=== PATIENT | female | born 1940 | race Caucasian/White ===

== ENCOUNTER 2017-08-25 07:18 | Day surgery (SDC) | payer MEDICARE ==
[~2017-08-25] VITALS: Ht 167.6 cm; Wt 86.2 kg
[~2017-08-25 07:18] MED LIST: ASPI325EC PO; BIOTIN5000 MCG PO; Caltrate-600 W1 EACH PO; FLUOCINONIDE; Fluocinonide15 G1 TOP; HYDCHL12.5 PO; HYDCHL25 PO; MEGARED OMEGA-1 EAC1 PO; TURMERIC500 M2 PO; VITAMIN B122500 MCG PO; VITAMIN D35000 UNI1 PO
== END 2017-08-25 23:00 | disposition home or self-care (01) ==
LOC: ORSCMMR 07:18
PROVIDERS: Internal Medicine Gastroenterology
PROC: 0DB58ZX Excision of Esophagus, Via Natural or Artificial Opening Endoscopic, Diagnostic (ICD-10-PCS; principal; 2017-08-25 08:30)
PROC: 0DB48ZX Excision of Esophagogastric Junction, Via Natural or Artificial Opening Endoscopic, Diagnostic (ICD-10-PCS; principal; 2017-08-25 08:30)
PROC: 0DB68ZX Excision of Stomach, Via Natural or Artificial Opening Endoscopic, Diagnostic (ICD-10-PCS; principal; 2017-08-25 08:30)
DX: K21.9 Gastro-esophageal reflux disease without esophagitis (principal); K31.7 Polyp of stomach and duodenum; K44.9 Diaphragmatic hernia without obstruction or gangrene; Z79.899 Other long term (current) drug therapy
CPT/HCPCS: 88305; 88342; J7120

== ENCOUNTER 2022-06-30 13:05 | Day surgery (SDC) | payer MEDICARE ==
[~2022-06-30] VITALS: Ht 170.2 cm; Wt 83.4 kg
== END 2022-06-30 15:16 | disposition home or self-care (01) ==
LOC: ORSCSDS 13:05
PROVIDERS: Ophthalmology
PROC: 08RJ3JZ Replacement of Right Lens with Synthetic Substitute, Percutaneous Approach (ICD-10-PCS; principal; 2022-06-30 14:30)
DX: H25.11 Age-related nuclear cataract, right eye (principal); K21.9 Gastro-esophageal reflux disease without esophagitis; I10 Essential (primary) hypertension; E78.5 Hyperlipidemia, unspecified; Z79.899 Other long term (current) drug therapy
CPT/HCPCS: J2001; J2250; J3010; J3301; J7040; V2632

== ENCOUNTER 2022-08-25 13:54 | Day surgery (SDC) | payer MEDICARE ==
[~2022-08-25] VITALS: Ht 170.2 cm; Wt 82.1 kg
--- NOTE | 2022-08-25 14:45 | NUR ---
08/25/22 1445 Gail Morales 1342 TETRACAINE TO LEFT EYE 1344 PLEDGET TO LEFT EYE BY [facility].KXW
== END 2022-08-25 16:03 | disposition home or self-care (01) ==
LOC: ORSCSDS 13:54
PROVIDERS: Ophthalmology
PROC: 08DK3ZZ Extraction of Left Lens, Percutaneous Approach (ICD-10-PCS; principal; 2022-08-25 15:30)
DX: H25.12 Age-related nuclear cataract, left eye (principal); Z96.1 Presence of intraocular lens; K21.9 Gastro-esophageal reflux disease without esophagitis; E78.5 Hyperlipidemia, unspecified; Z79.899 Other long term (current) drug therapy
CPT/HCPCS: J2001; J2250; J3010; J3301; J7040; V2632